=== PATIENT | male | born 1995 | race Hispanic/Latino ===

== ENCOUNTER 2018-07-22 17:03 | Inpatient (IN) | payer BC ==
[2018-07-22] MEDS ORDERED: MORPHINE 4 MG/ML SYR ONE (17:31)
[2018-07-22] MEDS ORDERED: ONDANSETRON 4 MG/2 ML VIAL ONE (17:31)
[2018-07-22] MEDS ORDERED: NA CHLORIDE 0.9% 1,000 ML ONE (17:31)
[2018-07-22 17:49] LABS: Absolute Lymphocytes (CBC) 1.5 K/uL (0.7-4.9); Absolute Monocytes 1.1 K/uL (0.1-1.3); Basophils % 0.6 % (0-1.3); Eosinophils % 0.5 % (0-4.4); Hematocrit 44.9 % (39.6-49.0); Lymphocytes % 15.2 % (15.3-44.8); MPV 9.5 fL (7.6-11.3); RBC Red Blood Cell Count 4.92 M/uL (4.33-5.43)
[2018-07-22 18:02] LABS: ALT/SGPT 112 U/L (12-78); AST/SGOT 42 U/L (15-37); Albumin 4.1 g/dL (3.4-5.0); Alkaline Phosphatase 65 U/L (45-117); BUN Blood Urea Nitrogen 17 mg/dL (7-18); Bicarbonate 30 mmol/L (21-32); Bilirubin Direct 0.3 mg/dL (0-0.2); Bilirubin Total 1.1 mg/dL (0.2-1.0); Glucose Level 102 mg/dL (74-106); Lipase 61 U/L (73-393); Potassium 3.8 mmol/L (3.5-5.1); Protein, Total 8.2 g/dL (6.4-8.2); Sodium Level 136 mmol/L (136-145)
--- NOTE | 2018-07-22 19:10 | RAD REPORT ---
EXAM DESCRIPTION: CTAbdomen Pelvis W Contrast - 07/22/2018 7:01 pm CLINICAL HISTORY: Abdominal pain. ABD PAIN COMPARISON: No comparisons TECHNIQUE: Biphasic CT imaging of the abdomen and pelvis was performed with 100 ml non-ionic IV cont rast. All CT scans are performed using dose optimization technique as appropriate and may include automated exposure control or mA/KV adjustment according to patient size. FINDINGS: The lung bases are clear. The liver, spleen, pancreas, adrenal glands and kidneys are within normal limits. No bowel obstruction, free air, free fluid or abscess. The appendix is dilated to 15 mm and moderate ly inflamed. No finding to suggest perforation. No evidence of significant lymphadenopathy. No suspicious bony findings. IMPRESSION: Acute appendicitis.
--- NOTE | 2018-07-22 19:25 | ER ---
Nurse's Notes [facility] Name: Nehemias Penaloza Age: 23 yrs Sex: Male : 1995 Arrival Date: 07/22/2018 Time: 17:05 Bed 26 Private MD: Víctor Morrow Diagnosis: Acute appendicitis Presentation: 07/22 17:11 Presenting complaint: Patient states: RLQ x 2 days. Denies n/v. Transition of care: sv patient was not received from another setting of care. Onset of symptoms was July 20, 2018. Care prior to arrival: None. 17:11 Method Of Arrival: Ambulatory sv 17:11 Acuity: JEB 3 sv 18:10 Risk Assessment: Do you want to hurt yourself or someone else? Patient reports no ls4 desire to harm self or others. Initial Sepsis Screen: Does the patient meet any 2 criteria? No. Patient's initial sepsis screen is negative. Does the patient have a suspected source of infection? No. Patient's initial sepsis screen is negative. Triage Assessment: 18:08 General: Appears in no apparent distress. Behavior is calm, cooperative. Pain: Denies ls4 pain. GI: No deficits noted. Historical: - Allergies: 17:11 No Known Allergies; sv - PMHx: 17:11 None; sv - PSHx: 17:11 None; sv - Immunization history:: Adult Immunizations unknown. - Family history:: not pertinent. - Ebola Screening: : No symptoms or risks identified at this time. - Social history:: Smoking status: Patient/guardian denies using tobacco, never smoked. Screenin:07 Abuse screen: Denies threats or abuse. Denies injuries from another. Nutritional ls4 screening: No deficits noted. Tuberculosis screening: No symptoms or risk factors identified. Fall Risk None identified. Assessment: 18:09 General: Appears in no apparent distress. Pain: Pain currently is 4 out of 10 on a pain ls4 scale. Respiratory: No deficits noted. GI: Bowel sounds present X 4 quads. Abd is soft Abdomen is tender to palpation in right lower quadrant. : No deficits noted. Musculoskeletal: No deficits noted. Vital Signs: 17:11 BP 122 / 85; Pulse 71; Resp 16; Temp 97.9; Pulse Ox 100% ; Weight 72.57 kg; Height 5 sv ft. 10 in. (177.80 cm); Pain 4/10; 18:22 BP 116 / 86; Pulse 78; Resp 16; Temp 98.0(O); Pulse Ox 96% ; lt1 19:45 BP 118 / 80; Pulse 82; Resp 16; Temp 98.4; Pulse Ox 99% ; Pain 3/10; ls4 17:11 Body Mass Index 22.96 (72.57 kg, 177.80 cm) sv ED Course: 17:05 Patient arrived in ED. as 17:05 Víctor Morrow MD is Private Physician. as 17:11 Triage completed. sv 17:11 Arm band placed on. sv 17:13 Leif Hayes MD is Attending Physician. rex 17:14 Dea Saucedo RN is Primary Nurse. ls4 17:46 No provider procedures requiring assistance completed. Inserted saline lock: 20 gauge ls4 in right antecubital area, using aseptic technique. Blood collected. 18:00 Bed in low position. Call light in reach. Side rails up X 1. promotion producer on. Pulse ls4 ox on. NIBP on. 18:00 Warm blanket given. ls4 18:[address] via wheelchair. nj 19:01 CT completed. Patient tolerated procedure well. Patient moved back from CT. nj 19:07 CT Abd/Pelvis - W/Contrast In Process Unspecified. EDMS 19:23 Víctor Morrow MD is Hospitalizing Provider. rex 21:44 Patient admitted, IV remains in place. intact. ls4 Administered Medications: 18:06 Not Given (Patient Refused): morphine 2 mg IVP once ls4 18:06 Not Given (Patient Refused): morphine 2 mg IVP once ls4 18:06 Not Given (Patient Refused): Zofran 4 mg IVP once; over 2 minutes ls4 18:07 Drug: NS 0.9% 1000 ml Route: IV; Rate: 1 bolus; Site: right antecubital; ls4 07/23 18:14 Follow up: IV Status: Completed infusion; IV Intake: 1000ml ls4 07/22 20:08 Drug: Zosyn 3.375 grams Route: IVPB; Infused Over: 60 mins; Site: right antecubital; ls4 21:38 Follow up: Response: No adverse reaction; IV Status: Completed infusion ls4 Intake: 07/23 18:14 IV: 1000ml; Total: 1000ml. ls4 Outcome: 07/22 19:24 Decision to Hospitalize by Provider. rex 20:39 Admitted to Med/surg Report called to Earnestine DAIGLE ls4 21:45 Condition: stable ls4 21:45 Admitted to Med/surg accompanied by tech, room 407, with chart. ls4 21:46 Patient left the ED. ls4 Signatures: Dispatcher [employer] EDMS Susana Grimaldo RN RN sv Anderson, Corey, MD MD cha Martinez, Amelia as Jordan, Dea Warner RN RN ls4 Hortencia Quintero 1 Corrections: (The following items were deleted from the chart) :45 21:44 intact, ls4 ls4
--- NOTE | 2018-07-22 19:25 | EDPHYS ---
Physician Documentation [facility] Name: Nehemias Penaloza Age: 23 yrs Sex: Male : 1995 Arrival Date: 07/22/2018 Time: 17:05 Bed 26 Private MD: Víctor Morrow ED Physician Leif Hayes HPI: 07/22 18:07 This 23 yrs old Male presents to ER via Ambulatory with complaints of rex Abdominal Pain. 18:07 The patient presents with abdominal pain in the lower abdomen, right lower quadrant. rex Onset: The symptoms/episode began/occurred 3 day(s) ago. The symptoms do not radiate. Associated signs and symptoms: Pertinent positives:. The symptoms are described as constant, crampy. Modifying factors: The symptoms are alleviated by nothing, the symptoms are aggravated by alcohol, food, jumping, walking. Severity of pain: At its worst the pain was moderate in the emergency department the pain is unchanged. The patient has experienced similar episodes in the past, several times. Historical: - Allergies: 17:11 No Known Allergies; sv - PMHx: 17:11 None; sv - PSHx: 17:11 None; sv - Immunization history:: Adult Immunizations unknown. - Family history:: not pertinent. - Ebola Screening: : No symptoms or risks identified at this time. - Social history:: Smoking status: Patient/guardian denies using tobacco, never smoked. ROS: 18:07 Constitutional: Negative for fever, chills, and weight loss, Eyes: Negative for injury, rex pain, redness, and discharge, ENT: Negative for injury, pain, and discharge, Neck: Negative for injury, pain, and swelling, Cardiovascular: Negative for chest pain, palpitations, and edema, Respiratory: Negative for shortness of breath, cough, wheezing, and pleuritic chest pain, Back: Negative for injury and pain, : Negative for injury, bleeding, discharge, and swelling, MS/Extremity: Negative for injury and deformity, Skin: Negative for injury, rash, and discoloration, Neuro: Negative for headache, weakness, numbness, tingling, and seizure, Psych: Negative for depression, anxiety, suicide ideation, homicidal ideation, and hallucinations, Allergy/Immunology: Negative for hives, rash, and allergies, Endocrine: Negative for neck swelling, polydipsia, polyuria, polyphagia, and marked weight changes, Hematologic/Lymphatic: Negative for swollen nodes, abnormal bleeding, and unusual bruising. 18:07 Abdomen/GI: Positive for abdominal pain, of the right lower quadrant. Exam: 18:07 Constitutional: This is a well developed, well nourished patient who is awake, alert, rex and in no acute distress. Head/Face: Normocephalic, atraumatic. Eyes: Pupils equal round and reactive to light, extra-ocular motions intact. Lids and lashes normal. Conjunctiva and sclera are non-icteric and not injected. Cornea within normal limits. Periorbital areas with no swelling, redness, or edema. ENT: Nares patent. No nasal discharge, no septal abnormalities noted. Tympanic membranes are normal and external auditory canals are clear. Oropharynx with no redness, swelling, or masses, exudates, or evidence of obstruction, uvula midline. Mucous membranes moist. Neck: Trachea midline, no thyromegaly or masses palpated, and no cervical lymphadenopathy. Supple, full range of motion without nuchal rigidity, or vertebral point tenderness. No Meningismus. Chest/axilla: Normal chest wall appearance and motion. Nontender with no deformity. No lesions are appreciated. Cardiovascular: Regular rate and rhythm with a normal S1 and S2. No gallops, murmurs, or rubs. Normal PMI, no JVD. No pulse deficits. Respiratory: Lungs have equal breath sounds bilaterally, clear to auscultation and percussion. No rales, rhonchi or wheezes noted. No increased work of breathing, no retractions or nasal flaring. Back: No spinal tenderness. No costovertebral tenderness. Full range of motion. Male : Normal genitalia with no discharge or lesions. Skin: Warm, dry with normal turgor. Normal color with no rashes, no lesions, and no evidence of cellulitis. MS/ Extremity: Pulses equal, no cyanosis. Neurovascular intact. Full, normal range of motion. Neuro: Awake and alert, GCS 15, oriented to person, place, time, and situation. Cranial nerves II-XII grossly intact. Motor strength 5/5 in all extremities. Sensory grossly intact. Cerebellar exam normal. Normal gait. Psych: Awake, alert, with orientation to person, place and time. Behavior, mood, and affect are within normal limits. 18:07 Abdomen/GI: Inspection: abdomen appears normal, Bowel sounds: normal, Palpation: moderate abdominal tenderness, in the right lower quadrant, Liver: no appreciated palpable abnormalities, Hernia: not appreciated. Vital Signs: 17:11 BP 122 / 85; Pulse 71; Resp 16; Temp 97.9; Pulse Ox 100% ; Weight 72.57 kg; Height 5 sv ft. 10 in. (177.80 cm); Pain 4/10; 18:22 BP 116 / 86; Pulse 78; Resp 16; Temp 98.0(O); Pulse Ox 96% ; lt1 19:45 BP 118 / 80; Pulse 82; Resp 16; Temp 98.4; Pulse Ox 99% ; Pain 3/10; ls4 17:11 Body Mass Index 22.96 (72.57 kg, 177.80 cm) sv MDM: 17:13 Patient medically screened. [facility] 18:09 Data reviewed: vital signs, nurses notes, lab test result(s), EKG, radiologic studies, [facility] CT scan. 07/22 17:14 Order name: Basic Metabolic Panel; Complete Time: 18:05 [facility] 07/22 17:14 Order name: CBC with Diff; Complete Time: 18:05 [facility] 07/22 17:14 Order name: Creatinine for Radiology; Complete Time: 18:05 [facility] 07/22 17:14 Order name: Hepatic Function; Complete Time: 18:05 [facility] 07/22 17:14 Order name: Lipase; Complete Time: 18:05 [facility] 07/22 17:14 Order name: CT Abd/Pelvis - W/Contrast; Complete Time: 19:22 [facility] 07/22 17:14 Order name: IV Saline Lock; Complete Time: 17:18 [facility] 07/22 17:14 Order name: Labs collected and sent; Complete Time: 17:18 [facility] 07/22 19:23 Order name: NPO; Complete Time: 19:42 [facility] Administered Medications: 18:06 Not Given (Patient Refused): morphine 2 mg IVP once ls4 18:06 Not Given (Patient Refused): morphine 2 mg IVP once ls4 18:06 Not Given (Patient Refused): Zofran 4 mg IVP once; over 2 minutes ls4 18:07 Drug: NS 0.9% 1000 ml Route: IV; Rate: 1 bolus; Site: right antecubital; ls4 07/23 18:14 Follow up: IV Status: Completed infusion; IV Intake: 1000ml ls4 07/22 20:08 Drug: Zosyn 3.375 grams Route: IVPB; Infused Over: 60 mins; Site: right antecubital; ls4 21:38 Follow up: Response: No adverse reaction; IV Status: Completed infusion ls4 Disposition: 07/22/18 19:24 Hospitalization ordered by Víctor Morrow for Observation. Preliminary diagnosis is Acute appendicitis. - Bed requested for Telemetry/MedSurg (observation). - Status is Observation. ls4 - Condition is Stable. - Problem is new. - Symptoms have improved. UTI on Admission? No Signatures: Dispatcher [employer] Susana Traylor RN Verito Woodard RN RN mw Anderson, Corey, MD MD cha Stewart, Lisa, RN RN ls4 Corrections: (The following items were deleted from the chart) 19:50 19:24 Hospitalization Ordered by Víctor Morrow MD for Observation. Preliminary diagnosis mw is Acute appendicitis. Bed requested for Telemetry/MedSurg (observation). Status is Observation. Condition is Stable. Problem is new. Symptoms have improved. UTI on Admission? No. rex 21:46 19:50 07/22/2018 19:24 Hospitalization Ordered by Víctor Morrow MD for Observation. ls4 Preliminary diagnosis is Acute appendicitis. Bed requested for Telemetry/MedSurg (observation). Status is Observation. Condition is Stable. Problem is new. Symptoms have improved. UTI on Admission? No. mw
[2018-07-22] MEDS ORDERED: PIPER/TAZO/NS 3.375gm 3.375 GM/100 ML BAG ONE (20:09)
[2018-07-22] MEDS ORDERED: ONDANSETRON 4 MG/2 ML VIAL IV PRN (21:03)
[2018-07-22] MEDS ORDERED: ACETAMINOPHEN 325 MG TABLET PO PRN (21:03)
[2018-07-22] MEDS: D5 0.45 NS 1,000 ML IV SCH (22:06)
[2018-07-22] MEDS: FAMOTIDINE 20 MG/2 ML VIAL IV SCH (22:06)
[2018-07-23] MEDS ORDERED: PIPER/TAZO/NS 3.375gm 6.750 GM/200 ML BAG ONE (00:14)
[2018-07-23] MEDS: MORPHINE 4 MG/ML SYR IV PRN ×2 (00:18→07:00)
--- NOTE | 2018-07-23 01:03 | PREOPCON ---
Date of Consultation: 07/22/2018 Chief Complaint: Abdominal pain. History Of Present Illness: The patient is a 23-year-old gentleman who presents to the emergency [facility] with 2-day history of right lower quadrant abdominal pain. Denies any nausea or vomiting. Some an orexia, postprandial in nature, occasionally. Approximately a month ago, he was in [place], and he was diagnosed with phlegmonous suppurative appendicitis. He was treated with antibiotics and dischar gehailey. He saw me about a week after he was doing well. So, we kept him on antibiotics. He was suppos ed to get a repeat CAT scan and interval appendectomy. However, his symptoms returned prior to his s cheduled CAT scan. No fever or chills. No sore throat, runny nose, cough, headaches, or dizziness. No chest pain. Review of Systems: Otherwise, unremarkable. Past Medical History: Negative. Past Surgical History: Negative. Allergies: NO ALLERGIES. Social History: The patient does not smoke. Drinks occasionally. Family History: Noncontributory. Physical Examination: Vital signs: Stable. Temperature is 97.9. He is awake, alert, and oriented x3. Head and Neck: Cranial nerves 2 through 12 are grossly within normal limits. No neck masses. No JV D. Throat clear. Neck is supple. Chest: Clear. Heart: S1, S2. Abdomen: Soft, nondistended. Positive bowel sounds. Positive right lower quadrant tenderness with minimal rebound. No rigidity or guarding. Extremities: Adequately perfused. Nontender. Neurologic: Nonfocal. Laboratory Data: White count is 9.6. There is no left shift. Chemistry reviewed. Slight elevation of the total bilirubin, direct bilirubin, AST, and ALT. Otherwise electrolytes are within normal li mits. CT of the abdomen and pelvis reviewed, show the appendix is dilated, moderately inflamed. No evidence of perforation. No significant lymphadenopathy. Assessment: Acute appendicitis. Plan: Admit, n.p.o., IV fluid, IV antibiotic, to the OR in a.m. for laparoscopic appendectomy, possi ble open. The patient and family understand the risks, benefits, and alternatives and agree with the procedure. MADHURI/MODL Voice ID: [id number] Report ID: [id number]
[2018-07-23] MEDS: PIPER/TAZO/NS 3.375gm 3.375 GM/100 ML BAG IVPB SCH ×4 (05:33→16:24)
[2018-07-23] MEDS: D5 0.45 NS 1,000 ML IV SCH ×3 (05:33→21:11)
[2018-07-23 05:58] LABS: Urine Appearance CLEAR; Urine Bilirubin NEGATIVE (NEG); Urine Blood NEGATIVE (NEG); Urine Color YELLOW; Urine Glucose NEGATIVE (NEG); Urine Protein NEGATIVE (NEG); Urine Specific Gravity >=1.030 (1.005-1.030)
[2018-07-23 06:26] LABS: Absolute Lymphocytes (CBC) 1.9 K/uL (0.7-4.9); Absolute Monocytes 1.1 K/uL (0.1-1.3); Absolute Neutrophil 5.3 K/uL (1.8-8.0); Basophils % 0.7 % (0-1.3); Eosinophils % 1.8 % (0-4.4); Hematocrit 39.1 % (39.6-49.0); Lymphocytes % 22.1 % (15.3-44.8); Monocytes % 12.7 % (3.3-12.3); RBC Red Blood Cell Count 4.24 M/uL (4.33-5.43)
[2018-07-23 06:32] LABS: ALT/SGPT 80 U/L (12-78); AST/SGOT 31 U/L (15-37); Albumin 3.3 g/dL (3.4-5.0); Alkaline Phosphatase 51 U/L (45-117); BUN Blood Urea Nitrogen 11 mg/dL (7-18); Bicarbonate 30 mmol/L (21-32); Bilirubin Direct 0.3 mg/dL (0-0.2); Glucose Level 90 mg/dL (74-106); Lipase 47 U/L (73-393); Potassium 3.7 mmol/L (3.5-5.1); Protein, Total 6.6 g/dL (6.4-8.2); Sodium Level 139 mmol/L (136-145)
[2018-07-23 07:05] LABS: Urine Microscopic Reflex NO UMIC
[2018-07-23] MEDS: FAMOTIDINE 20 MG/2 ML VIAL IV SCH ×2 (09:04→21:11)
[2018-07-23] MEDS ORDERED: PROPOFOL 200 MG/20 ML VIAL IV ONE (09:33)
[2018-07-23] MEDS ORDERED: FENTANYL CITR 100 MCG/2 ML ONE (09:33)
[2018-07-23] MEDS ORDERED: DEXAMETHASONE 10 MG/ML VIAL ONE (09:33)
[2018-07-23] MEDS ORDERED: MIDAZOLAM HCL 2 MG/2 ML INJ ONE (09:33)
[2018-07-23] MEDS ORDERED: LIDOCAINE 2% MPF 5 ML VIAL ONE (09:34)
[2018-07-23] MEDS ORDERED: ROCURONIUM 50 MG/5 ML VIAL IV ONE (09:35)
[2018-07-23] MEDS ORDERED: Ringers Lactate 1,000 ML IV ONE (09:47)
[2018-07-23] MEDS ORDERED: LIDOCAINE 1% MPF 30 ML VIAL ONE (09:56)
[2018-07-23] MEDS ORDERED: KETOROLAC 30 MG/ML INJ ONE (10:51)
--- NOTE | 2018-07-23 10:52 | P.OP ---
Cryptologic Supervisor: Prasad ROGER Preoperative diagnosis: Acute appendicitis Postoperative diagnosis: same, Suppurative Primary procedure: Lap Appy Anesthesia: general Estimated blood loss: min Specimen: appy Findings: as above Complications: None Drain(s): QING drain Transferred to: Recovery Room Condition: Good
[2018-07-23] MEDS: MEPERIDINE HCL 25 MG/0.5 ML ONE ×2 (10:57→11:18)
[2018-07-23] MEDS ORDERED: ONDANSETRON 4 MG/2 ML VIAL ONE (11:14)
[2018-07-23] MEDS ORDERED: ONDANSETRON 4 MG/2 ML VIAL IV PRN (11:19)
--- NOTE | 2018-07-23 12:12 | OP ---
Date of Procedure: 07/23/2018 Surgeon: Víctor Morrow MD Cafeteria Worker: ACACIA Rojas Preoperative Diagnosis: Acute appendicitis. Postoperative Diagnosis: Acute suppurative appendicitis. Procedure Performed: Laparoscopic appendectomy. Estimated Blood Loss: Minimal. Specimen: Appendix. Findings: As above. Anesthesia: General. Complications: None. Drain: QING #10 flat. Disposition: The patient tolerated the procedure in stable condition and taken to Recovery in good g eneral condition. Procedure In Detail: The patient was brought to the OR and placed in supine position. General anest hesia was begun. The patient was prepped and draped in usual sterile fashion. Lidocaine 1% infiltra gail locally. A 15-blade was used to make a 1 cm supraumbilical midline incision. Subcutaneous tissu e divided. Fascia was identified and divided. A #1 Vicryl stay suture was placed. Peritoneal cavit y was entered with blunt dissection. A 12-mm trocar placed into the peritoneal cavity under direct v ision. Pneumoperitoneum established. Then, two 5-mm trocars placed, 1 in the suprapubic region and 1 in the left lower quadrant. Laparoscopy revealed acute suppurative appendicitis with that being en cased in perhaps a previous fluid collection and was hard to tell, this was supposed to be an interva l appendectomy. Subsequently blunt dissection proceeded and the small bowel and the base of the appe ndix on the cecum were clearly identified as well as the mesoappendix. Endo JONATHAN stapling device was used to divide both structures and then the appendix was retrieved through the umbilicus via EndoCatc h bag. Right lower quadrant irrigated. Again, there was a lot of inflammatory tissue. Effluent was clear. There was no evidence of bleeding or bowel injury appreciated. A Deepak-Valente drain, #10 f lat, placed in the pelvis and right lower quadrant, secured with 3-0 nylon. All trocars were removed under direct vision. Stay sutures were tied to each other across the fascial defect. Subcutaneous wounds were irrigated. Bleeding was controlled with cautery. 3-0 chromic used to approximate subcut aneous tissue. Williams used to close the skin. Sterile dressing was applied. The patient was awake danae and taken to Recovery in good general condition. /MODL Voice ID: [id number] Report ID: [id number]
[2018-07-23] MEDS: HYDROMORPHONE HCL 1 MG/ML INJ IV PRN ×2 (14:42→18:22)
[2018-07-23] MEDS: HYDROCODONE/APAP 7.5/325 MG TAB PO PRN (21:10)
[2018-07-24] MEDS: PIPER/TAZO/NS 3.375gm 3.375 GM/100 ML BAG IVPB SCH ×3 (00:18→16:38)
[2018-07-24] MEDS: HYDROMORPHONE HCL 1 MG/ML INJ IV PRN ×3 (00:18→20:13)
[2018-07-24] MEDS: HYDROCODONE/APAP 7.5/325 MG TAB PO PRN ×2 (04:25→10:22)
[2018-07-24] MEDS: D5 0.45 NS 1,000 ML IV SCH ×3 (05:03→21:03)
[2018-07-24 06:17] LABS: Absolute Lymphocytes (CBC) 0.9 K/uL (0.7-4.9); Absolute Monocytes 0.9 K/uL (0.1-1.3); Basophils % 0.1 % (0-1.3); Hematocrit 37.6 % (39.6-49.0); Lymphocytes % 7.6 % (15.3-44.8); MPV 9.1 fL (7.6-11.3); Monocytes % 7.3 % (3.3-12.3); RBC Red Blood Cell Count 4.09 M/uL (4.33-5.43)
[2018-07-24] MEDS: FAMOTIDINE 20 MG/2 ML VIAL IV SCH ×2 (08:40→20:12)
--- NOTE | 2018-07-24 13:25 | PN ---
Date of Progress Note: 07/24/2018 Subjective: The patient is awake, alert, complaining of some right shoulder pain. With the parenter al pain medicine, it is under control. He is tolerating his diet. His vital signs are stable. He i s afebrile. White count is 11.8 with a left shift today. QING has serosanguineous fluid in it. Abdom en is benign. Assessment: Laparoscopic appendectomy for suppurative appendicitis. Recommendations: Encourage ambulation, incentive spirometry, IV antibiotics. Follow his white count . The patient is slowly improving. Probable discharge in 24 to 48 hours. /MODL Voice ID: [id number] Report ID: [id number]
[2018-07-25] MEDS: HYDROMORPHONE HCL 1 MG/ML INJ IV PRN ×2 (00:01→05:18)
[2018-07-25] MEDS: PIPER/TAZO/NS 3.375gm 3.375 GM/100 ML BAG IVPB SCH ×2 (00:04→09:02)
[2018-07-25] MEDS: D5 0.45 NS 1,000 ML IV SCH ×2 (05:20→13:03)
[2018-07-25 06:13] LABS: Absolute Lymphocytes (CBC) 2.1 K/uL (0.7-4.9); Absolute Monocytes 0.7 K/uL (0.1-1.3); Absolute Neutrophil 3.6 K/uL (1.8-8.0); Basophils % 0.8 % (0-1.3); Eosinophils % 1.2 % (0-4.4); Hematocrit 36.8 % (39.6-49.0); Lymphocytes % 32.4 % (15.3-44.8); MPV 9.1 fL (7.6-11.3); Monocytes % 10.7 % (3.3-12.3); RBC Red Blood Cell Count 3.95 M/uL (4.33-5.43)
[2018-07-25] MEDS: FAMOTIDINE 20 MG/2 ML VIAL IV SCH (09:06)
[2018-07-25] MEDS: HYDROCODONE/APAP 7.5/325 MG TAB PO PRN (09:32)
--- NOTE | 2018-07-26 09:08 | DS ---
Date of Discharge: 07/25/2018 Admitting Diagnosis: Acute suppurative appendicitis with phlegmon. Discharge Diagnosis: Acute suppurative appendicitis with phlegmon. Procedure: Laparoscopic appendectomy. Hospital Course: The patient is a 23-year-old gentleman who was initially diagnosed with phlegmonous appendicitis in [facility] approximately 4-6 weeks ago, was treated with antibiotics, was dischar ged. Followed up with me, was supposed to have an interval appendectomy, however, he became ill. Pr ior to the followup, he was admitted, was found to have acute appendicitis, and was taken to the OR, acute suppurative appendicitis was found, appendectomy was performed. Drain was placed. Postoperati vely, he had some pain. Parenteral pain management was given. He had some leukocytosis. IV antibio tics were given. He was encouraged to ambulate. Today, he is tolerating diet, ambulating, pain cont rol with p.o. pain medication, afebrile, white count is normal. Therefore, the patient will be disch arged to home. Disposition: Home. Condition: Stable. Discharge Instructions: Resume home medications and diet. Activity as tolerated. No heavy lifting. Remove outer dressing in a.m. Shower. Keep wound clean and dry. Follow up in my office in 1 week . Call for appointment. Tylenol No. 3 one tablet p.o. q.4 p.r.n. pain, Cipro 500 mg p.o. q.12, Flag yl 500 mg p.o. q.6. /MODL Voice ID: [id number] Report ID: [id number]
== END 2018-07-25 13:30 | disposition home or self-care (01) | DRG 340 ==
LOC: ER 17:03 → ERHOLD 19:26 → 2ND 20:42 → OBSVTOIN 07-23 14:38
PROVIDERS: ADMIT Surgery; ATTEND Surgery
PROC: 0DTJ4ZZ Resection of Appendix, Percutaneous Endoscopic Approach (ICD-10-PCS; principal; 2018-07-23 10:00)
DX: K35.33 Acute appendicitis with perforation, localized peritonitis, and gangrene, with abscess (principal)
CPT/HCPCS: 36415; 74177; 80048; 80076; 81003; 83690; 85025; 88304; 96361; 96365; 99285; J1100; J1170; J2175; J2250; J2405; J2543; J2704; J3010; J7030; Q9967